=== PATIENT | female | born 1990 | race Caucasian/White ===

== ENCOUNTER 2019-08-09 09:41 | Emergency (ER) | payer OTHER, SELFPAY ==
[2019-08-09 09:51] VITALS: BP 129/97; PULSE 83; RESP 16; TEMP 36.4; O2SAT 100
--- NOTE | 2019-08-09 10:06 | ED.DENTAL ---
HPI - Dental/Oral General Chief complaint: Dental/Oral Stated complaint: Tooth Ache Time Seen by Provider: 08/09/19 10:03 Source: patient and RN notes reviewed Mode of arrival: ambulatory Limitations: no limitations History of Present Illness HPI Narrative: 29-year-old female presents with concern for approximately 3-day history of left lower dental pain. Reports history of broken tooth in that area. Reports left lower facial swelling, low-grade fevers and intermittent headaches. Reports she is been taking ibuprofen for pain and using salt water rinses. Denies foul taste in her mouth, difficulty swallowing, drooling. Reports smoking MD Complaint: tooth pain Location: Tooth # (20) Related Data Allergies Allergy/AdvReac Type Severity Reaction Status Date / Time erythromycin base Allergy Mild Verified 07/31/09 14:06 Review of Systems Review of Systems: Narrative: CONSTITUTIONAL: Denies malaise, chills, sweats. Reports low-grade fever. EYES: Denies visual changes, redness, or discharge. ENT: Denies rhinorrhea, congestion, sinus pain, otalgia or sore throat, drooling, difficulty swallowing. Reports left lower dental pain, left lower jaw swelling CARDIOVASCULAR: Denies chest pain, palpitations, or edema. RESPIRATORY: Denies cough or dyspnea. GASTROINTESTINAL: Denies abdominal pain, nausea, vomiting SKIN: Denies rash or itching. Reports left lower jaw swelling MUSCULOSKELETAL: Denies myalgia. NEUROLOGIC: Reports intermittent headache. All systems reviewed & are unremarkable except as noted in HPI and below PMFSH Comments At time of signature, agree with nursing past medical, surgical, social and family history. There is no relevant family history pertinent to the presenting complaint Exam Narrative: Exam Narrative: GENERAL: Well-appearing, well-nourished, and in no acute distress. HEAD: Normocephalic, atraumatic. EYES: PERRLA, conjunctivae clear, EOMI. No nystagmus ENT: Nares clear, turbinates pink, no rhinorrhea or epistaxis. Mucous membranes moist. Oropharynx without erythema or lesions. Tonsils not enlarged and without exudate. Missing teeth, broken teeth, many caries. Tooth #20 fractured, not acutely, no apical abscess noted. Left lower jaw swelling and tenderness beneath tooth 20 noted NECK: Supple. No lymphadenopathy. CHEST: No respiratory distress. Clear to auscultation. No bony deformities, no asymmetry. Speaks in full sentences. HEART: Regular rate and rhythm. No murmur heard. SKIN: Warm, dry, no rash. NEURO: Alert and oriented x3. No focal deficits. PSYCH: Normal mood and affect Course Course Emergency Course: Patient is aware of diagnosis, understands and agrees to treatment plan. Anticipatory guidance given. Patient agrees to follow-up as directed and is aware of reasons to seek care at the emergency department. Portions of this record may have been created with voice recognition software Vital Signs Vital signs: Vital Signs Temperature 97.6 F 08/09/19 09:51 Pulse Rate 83 08/09/19 09:51 Respiratory Rate 16 08/09/19 09:51 Blood Pressure 129/97 H 08/09/19 09:51 Pulse Oximetry 100 08/09/19 09:51 Temperature 97.6 F 08/09/19 09:51 Pulse Rate 83 08/09/19 09:51 Respiratory Rate 16 08/09/19 09:51 Blood Pressure 129/97 H 08/09/19 09:51 Pulse Oximetry 100 08/09/19 09:51 Reviewed. Patient has been instructed to follow up with her primary care provider within the next week regarding her elevated blood pressure today. MDM - Dental/Oral MDM Narrative Medical decision making narrative: Patients pain and complaint coupled with physical findings are consistant with dentalgia. There are no focal signs of space occupying lesions that are compromising to the airway; no dysphagia, odynophagia, dysphonia, or dyspnea. No uvular deviation or soft palate edema. Patient is non-toxic appearing. The floor of the mouth is soft with no signs of Zane's Angina; no induration below mandible, no neck
== END 2019-08-09 10:25 | disposition home or self-care (01) ==
PROVIDERS: Emergency Provider Nurse Practitioner
DX: K04.7 Periapical abscess without sinus (principal); Z85.528 Personal history of other malignant neoplasm of kidney; Z90.5 Acquired absence of kidney
CPT/HCPCS: 99203; G0463

== ENCOUNTER 2021-08-14 11:26 | Emergency (ER) | payer OTHER, SELFPAY ==
[2021-08-14 11:30] VITALS: PULSE 100
[2021-08-14 11:35] VITALS: BP 105/80; PULSE 138; RESP 18; TEMP 37.6; O2SAT 99
--- NOTE | 2021-08-14 11:44 | ED.NAVMDI ---
HPI - Nausea/Vomiting/Diarrhea General Chief complaint: Nausea/Vomiting/Diarrhea Stated complaint: Throwing Up Source: patient Mode of arrival: ambulatory Limitations: no limitations History of Present Illness HPI Narrative: 31-year-old female presented for complaint of nausea and vomiting, multiple episodes since onset 0200. Endorses sick contacts with similar symptoms she was around 2 days ago. Last episode approximately 3 hours ago, since then she has been n.p.o. She denies fevers, hematochezia, melena, dysuria, hematuria; endorses chills, body aches, kidney pain and generalized abdominal pain. She has a history of bowel obstruction at age 6 and partial nephrectomy bilaterally. LMP 2 weeks ago. Related Data Allergies Allergy/AdvReac Type Severity Reaction Status Date / Time erythromycin base Allergy Mild Other Verified 08/14/21 11:41 Review of Systems Review of Systems: CONSTITUTIONAL: endorses body aches, chills EYES: Denies visual changes ENT: Denies rhinorrhea, congestion CARDIOVASCULAR: Denies chest pain, palpitations, or edema. RESPIRATORY: Denies cough or dyspnea. GASTROINTESTINAL: Endorses abdominal pain, nausea, vomiting, denies diarrhea, hematochezia, melena, hematemesis GENITOURINARY: Denies dysuria, hematuria, or CVA tenderness. SKIN: Denies rash, itching, or wounds. MUSCULOSKELETAL: Denies back pain, joint pain, or myalgia. NEUROLOGIC: Denies headache, numbness, tingling, or weakness. PSYCH: Denies mood change All systems reviewed & are unremarkable except as noted in HPI and below PMFSH Comments At time of signature, I have reviewed and agree with nursing past medical, surgical, social and family history unless otherwise noted. Please see nursing chart for further information. There is no relevant family history pertinent to the presenting complaint Exam Narrative: GENERAL: ill-appearing,nontoxic, no acute distress. HEAD: Normocephalic, atraumatic. EYES: EOMI. Conjunctivae normal. ENT: Mucous membranes pink and moist. NECK: Normal AROM. Supple. No lymphadenopathy. CHEST: No respiratory distress. Clear to auscultation. HEART: Regular rate and rhythm. No murmur appreciated. Normal peripheral pulses. ABDOMEN: Tender abdomen: generalized No guarding, rebound tenderness,or asymmetry; abd soft, nondistended, normal active bowel sounds. scarring to mid abd MUSCULOSKELETAL: No bony tenderness. EXTREMITIES: Normal range of motion. No edema. SKIN: Warm, dry, no rash. Capillary refill normal. Normal skin turgor. NEURO: No focal deficits. Alert and oriented x3. Gait steady. PSYCH: Normal affect. Course Course Emergency Course: Flu neg HR down to 100 Reassessed after zofran, reports significant improvement in nausea, tolerated water without vomiting. Patient is aware of diagnosis, understands and agrees to treatment plan. Anticipatory guidance given. Patient agrees to follow-up as directed and is aware of reasons to seek care at the emergency department. Portions of this record may have been created with voice recognition software Level of Care: Express Care Visit Vital Signs Vital signs: Vital Signs Pulse Rate 100 08/14/21 11:30 Temperature 99.6 F 08/14/21 11:35 Pulse Rate 138 H 08/14/21 11:35 Respiratory Rate 18 08/14/21 11:35 Blood Pressure 105/80 08/14/21 11:35 Pulse Oximetry 99 08/14/21 11:35 MDM - Nausea/Vomiting/Diarrhea Differential Diagnosis Differential diagnosis: Likely food poisoning, gastroenteritis, drug-induced nausea and vomiting and dehydration Lab Data Labs: Influenza A Screen Negative Reference Range: Negative Influenza B Screen Negative Reference Range: Negative Discharge Plan Discharge Clinical Impression: Nausea and vomiting in adult Patient Disposition: Home, Self-Care Condition: Stable Instructi
[2021-08-14] MEDS: ONDANSETRON HCL ODT 4 MG TABLET SUBLINGUAL (11:52)
== END 2021-08-14 12:40 | disposition home or self-care (01) ==
PROVIDERS: Emergency Provider Nurse Practitioner Family
DX: R11.2 Nausea with vomiting, unspecified (principal)
CPT/HCPCS: 87804; 99213; A9270; G0463

== ENCOUNTER 2022-08-14 09:04 | Emergency (ER) | payer OTHER, SELFPAY ==
--- NOTE | ~2022-08-14 | CT_ITS ---
CT of the Abdomen and Pelvis: Indication: Abdominal pain and swelling, history of Wilms tumor Technique: 2.5 mm axial scans were obtained through the abdomen and pelvis following intravenous adm inistration of 100 cc of Omnipaque 350. Dose reduction technique was used on this scan by utilizing a utomated exposure control and iterative reconstruction technique. The dose-length product (DLP) was 3 34.83 mGy-cm. Findings: Scans through the lung bases are unremarkable. The liver, spleen, pancreas, gallbladder, and adrenal glands are within normal limits. Right kidney i s small and somewhat dysmorphic. There is a wedge-shaped hypodense area at the left kidney which coul d reflect chronic renal infarct or other area of cortical scarring. No evidence of aortic aneurysm. No lymphadenopathy. No bowel obstruction or bowel wall thickening. There is no evidence to suggest acute appendicitis. Images through the pelvis were performed. Urinary bladder unremarkable. No significant adnexal mass e vident. No ascites. Impression: No definite acute abnormality identified. Small, somewhat dysmorphic right kidney, presumably related to reported history of Wilms tumor. 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 Reviewed, dictated and finalized at location . [employer] Impression: No definite acute abnormality identified. Small, somewhat dysmorphic right kidney, presumably related to reported history of Wilms tumor. 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
[2022-08-14 09:11] VITALS: BP 128/90; PULSE 92; RESP 16; TEMP 36.6; O2SAT 100
[2022-08-14 09:33] LABS: Basophils Absolute Auto 0.1 K/mm3 (0.0-0.1); Basophils Percent Auto 0.7 % (0.2-1.2); Eosinophils Absolute Auto 0.5 K/mm3 (0-0.3); Eosinophils Percent Auto 6.9 % (0-4.4); Hematocrit 41.8 % (37.0-47.0); Hemoglobin 14.1 g/dL (12.0-15.0); Immature Granulocyte Absolute 0.02 K/mm3 (0.00-0.031); Immature Granulocyte Percent A 0.3 % (0-0.5); Mean Corpuscular HGB Conc 33.7 g/dl (32-36); Mean Corpuscular Volume 85.8 fl (80-100); Mean Platelet Volume 9.5 fl (7.4-10.4); Monocytes Absolute Auto 0.5 K/mm3 (0.1-0.6); Monocytes Percent Auto 6.5 % (2.6-8.5); Neutrophils Absolute Auto 4.3 K/mm3 (1.3-6.7); Neutrophils Percent Auto 57.6 % (45.5-73.1); Platelet Count Result 357 k/mm3 (150-375); Red Blood Count 4.87 M/mm3 (4.2-5.4); White Blood Count 7.5 K/mm3 (4.5-10.0)
[2022-08-14 09:42] LABS: Alanine Aminotransferase 20 U/L (6-35); Albumin Level 4.4 g/dL (3.5-5.1); Alkaline Phosphatase 74 U/L (38-126); Anion Gap 8 mmol/L (8-16); Aspartate Amino Transferase 25 U/L (14-36); Bilirubin,Total 0.5 mg/dL (0.2-1.3); Blood Urea Nitrogen 11 mg/dL (7-17); Calcium 8.3 mg/dL (8.4-10.2); Carbon Dioxide 23 mmol/L (22-30); Chloride 105 mmol/L (98-107); Estimated Glomerular Filt Rate > 60; Glucose 114 mg/dL (65-110); Lipase 43 U/L (23-300); Potassium 4.4 mmol/L (3.4-5.0); Sodium 136 mmol/L (137-145)
--- NOTE | 2022-08-14 09:54 | ED.GENADULT ---
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 Patient reports since April she has gained a significant amount of weight. Patient states she is also concerned that she may currently have a urinary tract infection. Patient does describe some dark urine and pain with urination. Patient has history of Wilms tumor when she was a child. Patient denies any change in medications. Patient states she does not take any medications and did not stop any medications. Patient denies any significant change in her diet. Related Data Allergies Allergy/AdvReac Type Severity Reaction Status Date / Time erythromycin base Allergy Mild Other Verified 08/14/22 09:19 Review of Systems Review of Systems: CONSTITUTIONAL: Denies fever, chills, or sweats. EYES: Denies visual changes, redness, or discharge. ENT: Denies rhinorrhea, congestion, sore throat, or otalgia. CARDIOVASCULAR: Denies chest pain, palpitations, or edema. RESPIRATORY: Denies cough or dyspnea. GASTROINTESTINAL: See HPI GENITOURINARY: See HPI SKIN: Denies rash or itching. MUSCULOSKELETAL: Denies back pain, joint pain, or myalgia. NEUROLOGIC: Denies headache, numbness, or weakness. Exam Narrative: APPEARANCE: Well appearing, no pain, no distress, well-nourished. HEAD: normocephalic, atraumatic. EYES: PERRLA/EOMI, conjunctivae clear. NOSE: Normal no drainage EARS:TMS clear with good light reflex. THROAT: Pharynx clear, no exudate. NECK: Supple. No adenopathy, no masses. RESPIRATORY: Airway patent, respirations nonlabored. Clear to auscultation bilaterally, no rales, rhonchi, wheezing. CARDIOVASCULAR: Regular rate and rhythm without murmurs rubs or gallops. ABDOMINAL: Soft, nondistended, normal bowel sounds, suprapubic tenderness to palpation. MUSCULOSKELETAL: Moves all extremities. No pitting edema lower extremities NEURO: Alert. Cranial nerves II through XII intact. Grossly intact Course Course Emergency Course: 32-year-old female with history of Wilms tumor presenting with complaints of abdominal pain abdominal swelling and weight gain. Patient is also complaining of urinary symptoms. Baseline labs including UA were ordered. CT scan was ordered due to the complaint of abdominal swelling and ordered to rule out intra-abdominal mass. Patient felt improved with treatment. Patient was afebrile with no leukocytosis. Patient's CMP was similar to baseline. UA did show leuk esterase but also had moderate epithelial cells. CT scan showed no acute abnormality. Patient and family were updated on the results of her work-up. Patient was encouraged to have close follow-up with her primary care physician for additional outpatient testing. Vital Signs Vital signs: Vital Signs Temperature 98 F 08/14/22 09:11 Pulse Rate 92 08/14/22 09:11 Respiratory Rate 16 08/14/22 09:11 Blood Pressure 128/90 08/14/22 09:11 Pulse Oximetry 100 08/14/22 09:11 Oxygen Delivery Room Air 08/14/22 09:11 Temperature 98 F 08/14/22 09:11 Pulse Rate 88 08/14/22 13:55 Respiratory Rate 16 08/14/22 13:55 Blood Pressure 121/87 08/14/22 13:55 Pulse Oximetry 100 08/14/22 13:55 Oxygen Delivery Room Air 08/14/22 09:11 Medical Decision Making Vital Signs Vital Signs: Vital Signs Temperature 98 F 08/14/22 09:11 Pulse Rate 92 08/14/22 09:11 Respiratory Rate 16 08/14/22 09:11 Blood Pressure 128/90 08/14/22 09:11 Pulse Oximetry 100 08/14/22 09:11 Oxygen Delivery Room Air 08/14/22 09:11 Temperature 98 F 08/14/22 09:11 Pulse Rate 88 08/14/22 13:55 Respiratory Rate 16 08/14/22 13:55 Blood Pressure 121/87 08/14/22 13:55 Pulse Oximetry 100
[2022-08-14] MEDS: SODIUM CHLORIDE 0.9% IV 1,000 ML 999 ML IV CONT (09:58)
[2022-08-14 10:26] VITALS: BP 116/70; PULSE 82; RESP 16; O2SAT 99
[2022-08-14 11:21] LABS: Appearance Urine Cloudy (Clear); Bacteria Urine 4+ /hpf; Bilirubin Urine Negative (Negative); Blood Urine Negative (Negative); Color Urine Yellow (Yellow); Glucose Urine UA Negative (Negative); Ketones Urine Negative (Negative); Leukocyte Esterase Ur Trace LEU/UL (Negative); Nitrate Urine Negative (Negative); Non Pathogenic Casts 0-2; Protein Urine Negative (Negative); RBC Urine 0-2 /hpf (0-2); Specific Grav Ur 1.016 (1.001-1.035); Squamous Epithelial Cell Urine Moderate /hpf (Few); WBC Urine 21-50 /hpf
[2022-08-14 11:33] LABS: Add Urine Microscopic? YES
[2022-08-14 13:55] VITALS: BP 121/87; PULSE 88; RESP 16; O2SAT 100
== END 2022-08-14 14:00 | disposition home or self-care (01) ==
PROVIDERS: Emergency Provider Emergency Medicine
DX: R10.84 Generalized abdominal pain (principal)
CPT/HCPCS: 36415; 74177; 80053; 81001; 81025; 83690; 85025; 87077; 87086; 87186; 96360; 99284; J7030; Q9967

== ENCOUNTER 2023-07-30 16:01 | Emergency (ER) | payer OTHER, SELFPAY ==
[2023-07-30 16:15] VITALS: BP 86/59; PULSE 120; RESP 16; TEMP 37.4; O2SAT 96
--- NOTE | 2023-07-30 16:19 | ED.FEMALEGU ---
HPI - Female Genitourinary General Chief complaint: Urogenital-Female Stated complaint: UTI Time Seen by Provider: 07/30/23 16:20 Source: patient and RN notes reviewed Mode of arrival: ambulatory Limitations: no limitations History of Present Illness HPI Narrative: 33-year-old female with history of Wilms tumor presents for complaint of pain to low back and bilateral flank into hips for about 2 days. Also with frequency, urgency and dysuria. Endorses history of uti's and states it feels similar. Denies n/v/d/f/c. Took AZO. Related Data Home Medications Medication Instructions Recorded Confirmed aripiprazole 10 mg tablet 10 mg PO DAILY 07/30/23 07/30/23 buprenorphine 8 mg-naloxone 2 mg 1 film buccal DAILY 07/30/23 07/30/23 sublingual film hydroxyzine pamoate 25 mg capsule 25 - 50 mg PO TID PRN Anxiety 07/30/23 07/30/23 prazosin 2 mg capsule 2 mg PO HS 07/30/23 07/30/23 quetiapine 50 mg tablet 50 mg PO HS PRN Sleep 07/30/23 07/30/23 Allergies Allergy/AdvReac Type Severity Reaction Status Date / Time erythromycin base Allergy Mild Other Verified 07/30/23 16:06 Review of Systems Review of Systems: CONSTITUTIONAL: Denies body aches, fever, chills, or sweats. CARDIOVASCULAR: Denies chest pain, palpitations, or edema. RESPIRATORY: Denies cough or dyspnea. GASTROINTESTINAL: Denies abdominal pain, nausea, vomiting, or diarrhea. GENITOURINARY: Reports dysuria, frequency, urgency, hematuria, flank pain SKIN: Denies rash, itching, or wounds. MUSCULOSKELETAL: Denies back pain or myalgia. [facility] Past Medical History Medical History (Updated 07/30/23 @ 16:31 by Rula Orellana APRN) Wilms' tumor Surgical History Surgical History (Updated 07/30/23 @ 16:31 by Rula Orellana APRN) H/O partial nephrectomy Social History Social History (Updated 07/30/23 @ 16:33 by Rula Orellana APRN) Substance use type: opiates Other substance usage details: fentanyl. On suboxone as of 07/2023 Comments At time of signature, I have reviewed and agree with nursing past medical, surgical, social and family history unless otherwise noted. Please see nursing chart for further information. There is no relevant family history pertinent to the presenting complaint Exam Narrative: GENERAL: Well-appearing ENT: Mucous membranes pink and moist. NECK: Normal AROM. Supple. CHEST: No respiratory distress. Clear to auscultation. HEART: Regular rate and rhythm. ABDOMEN: Soft, nondistended, normal active bowel sounds. Mild tenderness to bilateral sides of abdomen. No CVA tenderness SKIN: Warm, dry, no rash. NEURO: No focal deficits. Alert and oriented x3. Gait steady. Course Course Emergency Course: Patient is aware of diagnosis, understands and agrees to treatment plan. Anticipatory guidance given. Patient agrees to follow-up as directed and is aware of reasons to seek care at the emergency department. Portions of this record may have been created with voice recognition software Level of Care: Express Care Visit Vital Signs Vital signs: Vital Signs Temperature 99.3 F 07/30/23 16:15 Pulse Rate 120 H 07/30/23 16:15 Respiratory Rate 16 07/30/23 16:15 Blood Pressure 86/59 L 07/30/23 16:15 Pulse Oximetry 96 07/30/23 16:15 Oxygen Delivery Room Air 07/30/23 16:15 Temperature 99.3 F 07/30/23 16:15 Pulse Rate 120 H 07/30/23 16:15 Respiratory Rate 16 07/30/23 16:15 Blood Pressure 86/59 L 07/30/23 16:15 Pulse Oximetry 96 07/30/23 16:15 Oxygen Delivery Room Air 07/30/23 16:15 Reviewed MDM - Female Genitourinary MDM Narrative Medical decision making narrative: results of urine reviewed with patient, Rx macrobid. Discussed physical exam findings. Advised supportive measures and signs/symptoms to go to the ER. Pt is appropriate for outpt treatment and f/u. Differential Diagnosis Differential diagnosis: Likely urinary tract infection, vaginitis and cystitis Lab Data Labs:
== END 2023-07-30 16:35 | disposition home or self-care (01) ==
PROVIDERS: Emergency Provider Nurse Practitioner Family; PCP Internal Medicine
DX: R30.0 Dysuria (principal)
CPT/HCPCS: 81003; 87077; 87086; 87186; 99213; G0463

== ENCOUNTER 2023-09-06 14:50 | Emergency (ER) | payer OTHER, SELFPAY ==
[2023-09-06 15:02] VITALS: BP 96/57; PULSE 68; RESP 16; TEMP 36.6; O2SAT 98
--- NOTE | 2023-09-06 15:47 | ED.EAR ---
HPI - Ear Problem General Chief complaint: Ear Stated complaint: left ear issue Time Seen by Provider: 09/06/23 15:43 Source: patient and RN notes reviewed Mode of arrival: ambulatory Limitations: no limitations History of Present Illness HPI Narrative: Patient presents today complaining of 5 day history of left ear pain and muffling. Currently rates her pain 8/10 and has been taking Tylenol and ibuprofen with mild relief. Reports last week she had cold symptoms with congestion, rhinorrhea, and GI symptoms. Most of the symptoms have fully resolved. Related Data Home Medications Medication Instructions Recorded Confirmed aripiprazole 10 mg tablet 10 mg PO DAILY 07/30/23 09/06/23 buprenorphine 8 mg-naloxone 2 mg 1 film buccal DAILY 07/30/23 09/06/23 sublingual film quetiapine 25 mg tablet 25 mg PO DAILY 09/06/23 09/06/23 Allergies Allergy/AdvReac Type Severity Reaction Status Date / Time erythromycin base Allergy Intermediate Hives Verified 09/06/23 15:24 Review of Systems Review of Systems: CONSTITUTIONAL: Denies body aches, fever, chills, or sweats. EYES: Denies visual changes, redness, or discharge. ENT: Denies rhinorrhea, congestion, sore throat. + left ear pain and muffling CARDIOVASCULAR: Denies chest pain, palpitations, or edema. RESPIRATORY: Denies cough or dyspnea. GASTROINTESTINAL: Denies abdominal pain, nausea, vomiting, or diarrhea. GENITOURINARY: Denies dysuria or hematuria. SKIN: Denies rash, itching, or wounds. MUSCULOSKELETAL: Denies back pain, joint pain, or myalgia. NEUROLOGIC: Denies headache, numbness, tingling, or weakness. PSYCH: Denies depression or anxiety. [facility] Past Medical History Medical History Wilms' tumor Surgical History Surgical History H/O partial nephrectomy Social History Social History Substance use type: opiates Other substance usage details: fentanyl. On suboxone as of 07/2023 Comments At time of signature, I have reviewed and agree with nursing past medical, surgical, social and family history unless otherwise noted. Please see nursing chart for further information. There is no relevant family history pertinent to the presenting complaint Exam Narrative: GENERAL: Well-appearing, well-nourished, and in no acute distress. HEAD: Normocephalic, atraumatic. EYES: EOMI. No redness or drainage. Conjunctivae normal. ENT: Mucous membranes pink and moist. Nares clear. No rhinorrhea. Right TM normal. Left TM erythematous and bulging with purulent material. NECK: Normal AROM. Supple. No lymphadenopathy. CHEST: No respiratory distress. EXTREMITIES: Normal range of motion. No edema. SKIN: Warm, dry, no rash. Capillary refill normal. Normal skin turgor. NEURO: No focal deficits. Alert and oriented x3. Gait steady. PSYCH: Normal affect. No signs of depression or anxiety. Course Course Level of Care: Express Care Visit Vital Signs Vital signs: Vital Signs Temperature 97.8 F 09/06/23 15:02 Pulse Rate 68 09/06/23 15:02 Respiratory Rate 16 09/06/23 15:02 Blood Pressure 96/57 L 09/06/23 15:02 Pulse Oximetry 98 09/06/23 15:02 Oxygen Delivery Room Air 09/06/23 15:02 Temperature 97.8 F 09/06/23 15:02 Pulse Rate 68 09/06/23 15:02 Respiratory Rate 16 09/06/23 15:02 Blood Pressure 96/57 L 09/06/23 15:02 Pulse Oximetry 98 09/06/23 15:02 Oxygen Delivery Room Air 09/06/23 15:02 Reviewed Medical Decision Making MDM Narrative Medical decision making narrative: Patient will be treated with amoxicillin for left otitis media. Discussed also taking a decongestant for pressure as well. Patient agrees with plan. Anticipatory guidance given. Differential Diagnosis Differential Diagnosis: Otitis media, otitis externa, ruptured TM, se
== END 2023-09-06 15:54 | disposition home or self-care (01) ==
PROVIDERS: Emergency Provider Nurse Practitioner; PCP Internal Medicine
DX: H66.002 Acute suppurative otitis media without spontaneous rupture of ear drum, left ear (principal); Z85.528 Personal history of other malignant neoplasm of kidney
CPT/HCPCS: 99213; G0463

== ENCOUNTER 2024-05-05 13:49 | Emergency (ER) | payer OTHER, SELFPAY ==
--- NOTE | ~2024-05-05 | XR_ITS ---
EXAMINATION: XR shoulder LT min 2V DATE: 05/05/2024 14:31 INDICATION: Left shoulder pain TECHNIQUE: AP and transscapular Y views of the left shoulder were obtained. COMPARISON: None FINDINGS: Normal alignment at the left shoulder. There is a mild upper thoracic levocurvature and midthoracic d extrocurvature. No fracture. Glenohumeral joint is normal. Acromioclavicular joint is normal. Soft ti ssues are unremarkable. Visualized portion of the lungs are clear. IMPRESSION: 1. No osseous abnormality at the left shoulder. 2. Mild S-shaped thoracic scoliosis. Reviewed, dictated and finalized at location B. [facility]
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
[2024-05-05 14:00] VITALS: BP 134/90; PULSE 119; RESP 16; TEMP 36.3; O2SAT 98
[2024-05-05 14:39] LABS: EDMONONEGPOS Negative (Negative); EDSTREPNEGPOS1 Negative (Negative)
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
== END 2024-05-05 14:56 | disposition home or self-care (01) ==
PROVIDERS: Emergency Provider Nurse Practitioner; PCP Emergency Medicine
DX: S16.1XXA Strain of muscle, fascia and tendon at neck level, initial encounter (principal); S46.912A Strain of unspecified muscle, fascia and tendon at shoulder and upper arm level, left arm, initial encounter; V49.40XA Driver injured in collision with unspecified motor vehicles in traffic accident, initial encounter; R59.0 Localized enlarged lymph nodes; F17.290 Nicotine dependence, other tobacco product, uncomplicated; Z85.528 Personal history of other malignant neoplasm of kidney; Z90.5 Acquired absence of kidney
CPT/HCPCS: 36416; 72040; 73030; 86308; 87081; 87880; 99214; G0463